=== PATIENT | female | born 1985 | race Caucasian/White ===

== ENCOUNTER 2016-12-28 11:57 | Emergency (ER) | payer OTHER ==
[~2016-12-28] VITALS: Ht 172.7 cm; Wt 130.2 kg
[2016-12-28 12:30] VITALS: BP 143/82
--- NOTE | 2016-12-28 13:05 | NUR ---
Patient ambulated to bed 05.
--- NOTE | 2016-12-28 13:10 | NUR ---
PT CAME TO ER DUE TO CRAMPING X4 DAYS WITH SPOTTING 4 DAYS AGO;PAIN SCALE OF 8/10;AGGRAVATED BY MOVEMENT;DENIES CP/SOB/N/V/PAINFUL URINATION AT THIS TIME;DENIES ANY MEDICAL HX;AAOX4;NO ACUTE DISTRESS NOTED NOTED AT THIS TIME;HOB ELEVAYED;NEEDS ATTENDED;SAFETY MEASUTES DONE;ALL ,MONITORS IN PLACED;MD MADE AWARE OF PT'S CONDITION.
--- NOTE | 2016-12-28 13:46 | NUR ---
PT RESTING ON BED;NO ACUTE DISTRESS NOTED;WILL CONTINUE TO MONITOR PT.
--- NOTE | 2016-12-28 14:14 | NUR ---
DR FLOREZ AT BEDSIDE
[2016-12-28] MEDS ORDERED: KETOROLAC 30 MG/ML VIAL IVP ONE (14:20)
[2016-12-28 14:30] LABS: APPEARANCE,URINE HAZY (CLEAR); BILIRUBIN,URINE NEGATIVE (NEGATIVE); BLOOD, URINE 2+ (NEGATIVE); COLOR,URINE YELLOW (YELLOW); LEUKOCYTE ESTERASE ,URINE 2+ (NEGATIVE); NITRITE, URINE NEGATIVE (NEGATIVE); PROTEIN,URINE NEGATIVE (NEGATIVE); UGLUCOSE NEGATIVE (NEGATIVE); UROBILINOGEN,URINE 0.2 EU/dL (0.2 - 1)
[2016-12-28 14:34] LABS: BACTERIA,URINE 1+ /HPF (None Seen); WBC,URINE 20-40 /HPF (0-5)
[2016-12-28 14:48] LABS: HEMATOCRIT 41.4 % (36-48); HEMOGLOBIN 14.4 g/dL (12.0-16.0); MEAN CORPUSCULAR HEMOGLOBIN 32 pg (27-31); MEAN CORPUSCULAR HGB CONC 35 g/dL (33-37); MEAN CORPUSCULAR VOLUME 93 fL (80-94); PLATELET COUNT (AUTO) 239 K/uL (140-450); RED BLOOD CELL COUNT(AUTO) 4.47 MIL/uL (4.20-5.40); RED CELL DISTRIBUTION WIDTH 11.6 % (11.6-13.7); WHITE BLOOD COUNT (AUTO) 14.8 K/uL (4.8-10.8)
[2016-12-28 14:55] LABS: ANION GAP 11.4 (8-16); CALCIUM 9.1 mg/dL (8.5-10.1); CREATININE 0.9 mg/dL (0.6-1.3); POTASSIUM 4.4 mmol/L (3.5-5.1)
[2016-12-28 15:02] LABS: ALBUMIN 3.2 g/dL (3.4-5.0); TOTAL BILIRUBIN 0.5 mg/dL (0.0-1.0); TOTAL PROTEIN, SERUM 8.1 g/dL (6.4-8.2)
[2016-12-28 15:03] LABS: BAND % (MANUAL) 10 % (0-8); LYMPHOCYTES % (MANUAL) 2 % (20-46); MONOCYTES % (MANUAL) 2 % (5-12); NEUTROPHILS % (MANUAL) 78 (43-65)
[2016-12-28 15:04] LABS: PLATELET ESTIMATE ADEQUATE
--- NOTE | 2016-12-28 15:04 | NUR ---
PT LYING ON BED; NO ACUTE DISTRESS NOTED AT THIS TIME;WILL CONTINUE TO MONITOR PT;
--- NOTE | 2016-12-28 15:26 | NUR ---
PT WENT TO CT SCAN;ACCOMPANIED BY [facility].
--- NOTE | 2016-12-28 15:26 | NUR ---
Patient going to CT via wheelchair per tech.
--- NOTE | 2016-12-28 15:38 | NUR ---
BACK FROM CT SCAN;NO ACUTE DISTRESS NOTED;WILL CONTINUE TO MONITOR PT.
--- NOTE | 2016-12-28 16:06 | NUR ---
DR FLOREZ AT BEDSIDE.
[2016-12-28 16:20] VITALS: BP 111/65
--- NOTE | 2016-12-28 16:20 | NUR ---
Patient discharged with v/s stable. Written and verbal after care instructions given and explained. Patient alert, oriented and verbalized understanding of instructions. Ambulatory with steady gait. All questions addressed prior to discharge. ID band removed. Patient advised to follow up with PMD. Rx of NORCO,CIPRO AND MOTRIN given. Patient educated on indication of medication including possible reaction and side effects. Opportunity to ask questions provided and answered.
== END 2016-12-28 16:20 | disposition home or self-care (01) ==
LOC: MED 11:57
DX: N39.0 Urinary tract infection, site not specified (principal); F17.200 Nicotine dependence, unspecified, uncomplicated
CPT/HCPCS: 36415; 74176; 80053; 81001; 81025; 83690; 85025; 87086; 96374; 99285; J1885

== ENCOUNTER 2023-07-18 20:08 | Emergency (ER) | payer SELFPAY ==
[~2023-07-18] VITALS: Ht 172.7 cm; Wt 140.6 kg
[2023-07-18 20:10] VITALS: BP 154/90; PULSE 85; RESP 18; TEMP 98.3; O2SAT 98
[2023-07-18] MEDS ORDERED: CEPH-588 PO (23:09)
[2023-07-18] MEDS ORDERED: NYSTRC TP (23:09)
== END 2023-07-18 23:20 | disposition home or self-care (01) ==
LOC: MED 20:08
DX: L25.9 Unspecified contact dermatitis, unspecified cause (principal); L03.116 Cellulitis of left lower limb; L03.115 Cellulitis of right lower limb; Z79.899 Other long term (current) drug therapy; Z79.2 Long term (current) use of antibiotics
CPT/HCPCS: 99283